=== PATIENT | male | born 1950 | race Caucasian/White ===

== ENCOUNTER 2016-11-25 06:48 | Day surgery (SDC) ==
[2016-11-25] MEDS ORDERED: DIPRIVAN 20 ML VIAL IVP ONE (08:53)
[2016-11-25] MEDS ORDERED: VERSED ONE (08:53)
[2016-11-25 10:26] VITALS: BP 119/80; TEMP 97.4
--- NOTE | 2016-11-25 14:45 | OP ---
INDICATIONS FOR PROCEDURE: 66-year-old gentleman presents for colonoscopy exam. He has a family history of colon cancer involving his mother. MEDICATIONS: SEE ANESTHESIA NOTES. PROCEDURE: COLONOSCOPY/SNARE POLYPECTOMY. REPORT: The risks, benefits, alternatives and limitations were discussed in detail with the patient. Informed consent was obtained. After adequate sedation was achieved, a digital rectal exam revealed good tone, no masses. The colonoscope was introduced into the rectum and advanced under direct visual guidance to the cecum. The cecum was identified by the appendiceal orifice and IC valve. I then slowly withdrew the scope in a circumferential manner examining the mucosa quite carefully. I looked on the proximal and distal side of folds and flexures as best as possible. In the cecum there is a 5 or 6 mm semi sessile polyp that I removed by snare technique. In the distal ascending colon there is a 5 to 6 mm semi sessile polyp that I removed by snare technique. There was a similar polyp in the mid sigmoid area that I also removed by snare technique. No other abnormalities were noted including on retroflex view of the anal canal. The prep was good. The withdrawal time was 10 minutes and 0 seconds. The patient tolerated the procedure well with stable vital signs and pulse oximetry throughout. IMPRESSION: 1. THREE (3) SMALL POLYPS REMOVED RECOMMENDATIONS: 1. High fiber diet. 2. Office visit as needed. 3. Await pathology results; if these are adenomatous tissue, I recommend repeat colonoscopy examination again in 3 years otherwise screening again in 5 years, sooner if there are signs and symptoms to indicate otherwise. CC: DR. BURAK HOWE
== END 2016-11-25 10:32 | disposition home or self-care (01) ==
LOC: SURG 06:48
PROVIDERS: ATTEND Internal Medicine Gastroenterology
DX: Z80.0 Family history of malignant neoplasm of digestive organs (principal); D12.0 Benign neoplasm of cecum; D12.2 Benign neoplasm of ascending colon; D12.5 Benign neoplasm of sigmoid colon